=== PATIENT | male | born 1945 | race Caucasian/White ===

== ENCOUNTER 2020-12-19 10:00 | Outpatient (CLI) | payer MEDICARE ==
[2020-12-19] VITALS (7 sets, daily range): BP systolic 114–138; BP diastolic 70–86; PULSE 80–97; TEMP 98.7–99
[~2020-12-19] VITALS: Ht 177.8 cm; Wt 86.4 kg
[2020-12-19] MEDS ORDERED: SYNTHROID 0.0.025 MG PO (10:27)
[2020-12-19] MEDS ORDERED: HYTRIN 5MG C5 MG/CAP PO (10:27)
[2020-12-19] MEDS ORDERED: ASPIRIN E.C. 8181 MG PO (10:27)
[2020-12-19] MEDS ORDERED: WAL ITIN D PO (10:28)
== END 2020-12-19 14:10 | disposition home or self-care (01) ==
LOC: EUO 10:00
DX: U07.1 COVID-19 (principal)